=== PATIENT | male | born 1990 | race Caucasian/White ===

== ENCOUNTER 2021-01-22 13:36 | Emergency (ER) | payer OTHER ==
[~2021-01-22] VITALS: Ht 188 cm; Wt 104.0 kg
[2021-01-22 13:38] VITALS: BP 135/86
[2021-01-22] MEDS ORDERED: IBUP200C25 PO (13:48)
[2021-01-22] MEDS ORDERED: methocarbamoL 750 MG TAB PO ONE (15:15)
[2021-01-22] MEDS ORDERED: ACETAMINOPHEN 325 MG TAB PO ONE (15:15)
[2021-01-22] MEDS ORDERED: LIDOCAINE 5% (LIDODERM) PATCH TD ONE (15:15)
[2021-01-22] MEDS ORDERED: LIDO5DIS41 TOP (15:58)
[2021-01-22] MEDS ORDERED: METH-1164 PO (15:58)
[2021-01-22] MEDS ORDERED: KETO10TAB PO (15:58)
[2021-01-22] MEDS ORDERED: **NOTE PATIENT COMMENT** MISC XX SCH (21:00)
== END 2021-01-22 16:09 | disposition home or self-care (01) ==
LOC: M ED 13:36
DX: M54.42 Lumbago with sciatica, left side (principal); Z79.899 Other long term (current) drug therapy